=== PATIENT | female | born 1980 | race Caucasian/White ===

== ENCOUNTER 2022-05-20 23:24 | Emergency (ER) | payer OTHER ==
[2022-05-20 23:45] LABS: BASOPHIL 0.7 % (0-2); EOSINOPHIL 2.1 % (0-5); HCT 42.4 % (37.0-47.0); LYMPHOCYTE 27.3 % (15-48); MCH 30.5 pg (25.0-31.0); MCV 92.4 fL (78.0-100.0); MONOCYTE 8.2 % (0-12); MPV 9.5 fL (6.0-9.5); NEUTROPHIL 61.4 % (41-80); NRBC 0; PLT 352 K/uL (150-400); RBC 4.59 M/uL (4.20-5.40); RDW 12.8 % (11.5-14.0); WBC 12.2 K/uL (4.0-10.5)
[2022-05-20 23:57] LABS: INR 1.03 (0.9-1.2); PROTHROMBIN TIME 13.2 SECONDS (11.9-13.9); PTT 29.1 SECONDS (24.9-34.6)
[2022-05-21 00:16] LABS: ALBUMIN 4.2 g/dL (3.4-5.0); BILIRUBIN - TOTAL 0.3 mg/dL (0.2-1.0); BUN/CREAT RATIO (CALC) 14.3 RATIO; CREATININE 0.63 mg/dL (0.51-0.95); GLOBULIN (CALCULATION) 3.6 g/dL; POTASSIUM 3.3 mmol/L (3.5-5.1); TOTAL PROTEIN 7.8 g/dL (6.4-8.2)
[2022-05-21 01:07] LABS: BILIRUBIN NEGATIVE (NEGATIVE); BLOOD NEGATIVE Ery/uL (NEGATIVE); CLARITY CLEAR (CLEAR); COLOR YELLOW (YELLOW); GLUCOSE (U) NORMAL (NORMAL); LEUKOCYTES NEGATIVE Leu/uL (NEGATIVE); NITRITE NEGATIVE (NEGATIVE); PROTEIN NEGATIVE (NEGATIVE); SPECIFIC GRAVITY <=1.005 (1.001-1.030); UROBILINOGEN 0.2 mg/dL (0.2-1.0); pH 6.5 (5.0-9.0)
[2022-05-21 01:40] LABS: CORONAVIRUS 2019 SARS-COV-2 NEGATIVE (NEGATIVE); INFLUENZA A NAA NEGATIVE (NEGATIVE)
[2022-05-21 02:15] LABS: AMPHETAMINES NEGATIVE (NEGATIVE); BARBITURATES NEGATIVE (NEGATIVE); ECSTASY (MDMA) NEGATIVE (NEGATIVE); MARIJUANA (THC) NEGATIVE (NEGATIVE); METHADONE NEGATIVE (NEGATIVE); OPIATES NEGATIVE (NEGATIVE); OXYCODONE NEGATIVE (NEGATIVE)
== END 2022-05-21 02:43 | disposition home or self-care (01) ==
LOC: FER 23:24
PROVIDERS: Internal Medicine
DX: R00.2 Palpitations (principal); R00.0 Tachycardia, unspecified; Z20.822 Contact with and (suspected) exposure to COVID-19
CPT/HCPCS: 36415; 71045; 71275; 80053; 80305; 81003; 84145; 84484; 85025; 85379; 85610; 85730; 93005; J2060; J3475; J7120; Q9967; U0002